=== PATIENT | male | born 1965 | race Caucasian/White ===

== ENCOUNTER 2024-05-22 07:21 | Emergency (ER) | payer MEDICARE, OTHER, SELFPAY ==
[2024-05-22] MEDS ORDERED: Aspirin Chewable 81 MG TAB ONE (07:34)
[2024-05-22] MEDS ORDERED: Nitroglycerin 0.4 MG TAB 1 EACH ONE (07:34)
[2024-05-22] MEDS ORDERED: HYDROmorphone 0.5 MG/0.5 ML SYRINGE ONE (07:35)
[2024-05-22 07:47] LABS: #Basophils 0.1 thou/uL (0.0-0.2); #Eosinophils 0.1 thou/uL (0.0-0.7); #Lymphocytes 1.5 thou/uL (1.20-3.40); #Monocytes 0.6 thou/uL (0.11-0.59); #Neutrophils 3.1 thou/uL (1.40-6.50); %Basophils 2.6 % (0.0-1.0); %Eosinophils 2.3 % (0.0-10.0); %Lymphocytes 28.1 % (21.0-51.0); %Monocytes 10.2 % (0.0-10.0); %Neutrophils 56.8 % (42.0-75.0); Hematocrit 34.8 % (42.0-52.0); Hemoglobin 12.1 g/dL (14.0-18.0); Mean Corpuscular HGB CONC 34.6 g/dL (32.0-36.0); Mean Corpuscular Hemoglobin 37.2 pg (27.0-31.0); Platelet Count 54 10x3/uL (130-400); RBC Distribution Width 12.3 % (11.5-14.5); Red Blood Cell (RBC) Count 3.24 mill/uL (4.70-6.10); White Blood Cell (WBC) Count 5.4 10x3/uL (4.8-10.8)
[2024-05-22 07:51] LABS: ALT (SGPT) 50 U/L (8-55); AST (SGOT) 125 U/L (5-34); Albumin 3.1 g/dL (3.5-5.0); Alkaline Phosphatase 210 U/L (40-110); Anion Gap 13 mmol/L (10-20); BUN (Urea Nitrogen) 8 mg/dL (8.4-25.7); Bilirubin, Total 2.9 mg/dL (0.2-1.2); Calc. Creatinine Clearance 0 mL/min (70-130); Calcium 8.6 mg/dL (7.8-10.44); Carbon Dioxide 27 mmol/L (22-29); Chloride 106 mmol/L (98-107); Estimated GFR 92; Globulin 4.6 g/dL (2.4-3.5); Glucose 142 mg/dL (70-105); Potassium 3.8 mmol/L (3.5-5.1); Protein, Total 7.7 g/dL (6.0-8.3); Sodium 142 mmol/L (136-145)
[2024-05-22 07:55] LABS: Troponin I 0.012 ng/mL (< 0.028)
[2024-05-22 08:06] LABS: MDiff Complete? YES; Macrocytosis SLIGHT = 6-15 cells (100X) (0-5/hpf); Platelet Adequacy Comment Appears Decreased
[2024-05-22] MEDS ORDERED: Nitroglycerin 2% Ointment 1 INCH/1 GM Packet ONE (08:47)
[2024-05-22] MEDS ORDERED: Heparin 10,000 UNITS/ 10 ML VIAL ONE (08:54)
[2024-05-22] MEDS ORDERED: Heparin 25,000 units/D5W 500 ML ONE (08:54)
[2024-05-22] MEDS ORDERED: Pantoprazole 40 MG VIAL ONE (09:04)
[2024-05-22] MEDS ORDERED: Iopamidol 370 76% 100 ML VIAL ONE (13:32)
== END 2024-05-22 09:20 | disposition short-term general hospital (02) ==
LOC: BURERS 07:21
DX: I21.4 Non-ST elevation (NSTEMI) myocardial infarction (principal); I10 Essential (primary) hypertension; F17.210 Nicotine dependence, cigarettes, uncomplicated
CPT/HCPCS: 71045; 71275; 80053; 83880; 84484; 85025; 93005; 94760; J1644 ×2; J2470; 96365; 96375; 96376; Q9967